=== PATIENT | male | born 1970 | race Hispanic/Latino ===

== ENCOUNTER 2018-05-02 11:41 | Emergency (ER) | payer SELFPAY ==
[~2018-05-02] VITALS: Ht 170.2 cm; Wt 81.6 kg
[2018-05-02 11:47] VITALS: BP 157/95
--- NOTE | 2018-05-02 12:37 | RADIOLOGY REPORT ---
EXAMINATION: XR FOOT, RIGHT CLINICAL INFORMATION: Right foot swelling and pain. Evaluate for fracture. COMPARISON: None TECHNIQUE: AP, lateral, and oblique views of the right foot. FINDINGS AND IMPRESSION: There is no fracture or malalignment. There are mild degenerative changes of the first MTP joint.
--- NOTE | 2018-05-02 13:14 | ED UPPER/LOWER EXTREMITY COMPL ---
History of Present Illness General Chief Complaint: Foot or Ankle Injury Stated Complaint: FOOT SWELLING, PAINFUL Source: patient Exam Limitations: no limitations Vital Signs & Intake/Output Vital Signs & Intake/Output Vital Signs Date Time Temp Pulse Resp B/P B/P Pulse O2 O2 Flow FiO2 Mean Ox Delivery Rate 05/02 1147 97.4 74 18 157/95 98 Room Air Allergies Coded Allergies: No Known Allergies (05/02/18) Triage Note: 47 YO MALE TO TRIAGE FOR EVAL OF R FOOT/CALF PAIN. HAS BEEN TRAVELING BACK AND FORTH FROM [place] IN HIS CAR. STARTED WITH SCIATICA PAIN ON THE R SIDE AND NOW HAS PAIN TO R FOOT AND R CALF. PT REPORTS SLIGHT SWELLING. UNABLE TO VISUALIZE IN TRIAGE. NO INJURY Triage Nurses Notes Reviewed? yes Onset: Gradual Duration: week(s): Timing: recent history Severity: moderate Pain/Injury Location: Right: Leg, Foot, Ankle. Method of Injury: unknown HPI: 47yo male with hx of DM presents to ED complaining of "sleeping" sensation to right calf and foot x 3 weeks. Patient is also concerned about the pain and swelling. Patient states that 3 weeks ago he began having pain radiating from buttocks down to foot and right side. He states this is when paresthesias also began. Patient attributed his symptoms to sciatica. He reports that over the past 2 weeks he has been traveling back and forth from [place] to [place]. Reports that he was worried about possible blood clot. There was no trauma or injury prior to onset of symptoms. Patient denies back pain, saddle anesthesia, incontinence. (Adrienne Leigh) Past History Travel History Traveled to [facility] past 21 day No Medical History Any Pertinent Medical History? see below for history Neurological: NONE EENT: NONE Cardiovascular: NONE Respiratory: NONE Gastrointestinal: NONE Hepatic: NONE Renal: NONE Musculoskeletal: NONE Psychiatric: NONE Endocrine: diabetes Blood Disorders: NONE Cancer(s): NONE BENEFITS REPRESENTATIVE/Reproductive: NONE Surgical History Surgical History: non-contributory Psychosocial History What is your primary language Uzbek Tobacco Use: Never used Family History Hx Contributory? No (Adrienne Leigh) Review of Systems Review of Systems Constitutional: Reports: no symptoms. EENTM: Reports: no symptoms. Respiratory: Reports: no symptoms. Cardiovascular: Reports: no symptoms. Gastrointestinal/Abdominal: Reports: no symptoms. Genitourinary: Reports: no symptoms. Musculoskeletal: Reports: see HPI. Skin: Reports: no symptoms. Neurological/Psychological: Reports: see HPI. Hematologic/Endocrine: Reports: no symptoms. Immunological: Reports: no symptoms. All Other Systems: Reviewed and Negative (Kristyn JERRY,Adrienne Landeros) Physical Exam Physical Exam General Appearance: well developed/nourished, no apparent distress, alert, awake Head: atraumatic, normal appearance Eyes: Bilateral: normal appearance. Ears, Nose, Throat: hearing grossly normal Neck: normal inspection, supple, full range of motion Cardiovascular/Respiratory: normal peripheral pulses, no respiratory distress Peripheral Pulses: 2+ dorsalis pedis (R) Back: normal inspection, normal range of motion, no vertebral tenderness Leg Right: buttucks tenderness, calf is nontender, no significant edema detected Hip Left: normal range of motion, normal inspection Hip Right: normal range of motion, normal inspection Knee Left: normal range of motion, normal inspection Knee Right: normal range of motion, normal inspection Foot Left: normal inspection, normal range of motion Foot Right: normal inspection, normal range of motion Neurologic/Tendon: normal sensation, normal motor functions, normal tendon functions Skin: intact, normal color, warm/dry (Kristyn JERRY,Adrienne Landeros) Progress Differential Diagnosis: arterial insufficiency, contusion, DVT, fracture, gout, sprain, tendon injury Plan of Care: Orders Procedure Date/time Status US-UNILATERAL VENOUS DOPPLER 05/02 1204 Active No evidence of DVT detected on ultrasound. Patient has sensation intact bilaterally although he does report paresthesias. There is no focal neurologic deficit on exam. He has intact distal pulses. Possible paresthesias related to sciatica, also possibility of early diabetic neuropathy. I recommended patient follow up with [facility] as well as a group exercise instructor. He was given a referral for both. I recommended Tylenol use for pain. Patient is currently not having pain, he may take Tylenol as needed. Patient ambulates without difficulty leaving the emergency department. He was educated on red flag symptoms. He agrees with the plan of care. Diagnostic Imaging: Viewed by Me: Radiology Read, Ultrasound. Discussed w/RAD: Radiology Read, Ultrasound. Radiology Impression: PATIENT: SHANIQUA NASSAR PRESENT AGE: 47 PATIENT ACCOUNT NO: [id number] : 72 LOCATION: [facility] ORDERING PHYSICIAN: Adrienne JERRY SERVICE DATE: 05/02/18 EXAM TYPE: US - US-UNILATERAL VENOUS DOPPLER EXAMINATION: US TRIPLEX LOWER EXTREMITY, RIGHT CLINICAL INFORMATION: Right leg swelling. Evaluate for deep vein thrombosis. COMPARISON: None TECHNIQUE: Color-flow triplex imaging with spectral analysis and compression Doppler were performed on the lower extremity. FINDINGS : Respiratory variation, normal compression and augmented flow are noted throughout the lower extremity. The visualized common femoral vein, superficial femoral vein, profunda femoral vein, popliteal vein and midcalf peroneal and posterior tibial venous segments show no evidence of deep venous thrombosis. There is no Chow's cyst. IMPRESSION: No evidence of deep venous thrombosis involving the lower extremity. DICTATED BY: Jaylen Nelson MD DATE/TIME DICTATED:05/02/181308 CORRECTIONS CASEWORKER:JEAN CARLOS DATE/TIME TRANSCRIBED:1308 CONFIDENTIAL, DO NOT COPY WITHOUT APPROPRIATE AUTHORIZATION. < Electronically signed in Other Vendor System> SIGNED BY: Jaylen Nelson MD 05/02/18 1314, PATIENT: SHANIQUA NASSAR PRESENT AGE: 47 PATIENT ACCOUNT NO: [id number] : 72 LOCATION: [facility] ORDERING PHYSICIAN: Adrienne JERRY SERVICE DATE: 05/02/18 EXAM TYPE: RAD - XRY-FOOT COMPLETE, R EXAMINATION: XR FOOT, RIGHT CLINICAL INFORMATION: Right foot swelling and pain. Evaluate for fracture. COMPARISON: None TECHNIQUE: AP, lateral, and oblique views of the right foot. FINDINGS AND IMPRESSION: There is no fracture or malalignment. There are mild degenerative changes of the first MTP joint. DICTATED BY: Jaylen Nelson MD DATE/TIME DICTATED:05/02/181230 CORRECTIONS CASEWORKER:JEAN CARLOS DATE/TIME TRANSCRIBED:1230 CONFIDENTIAL, DO NOT COPY WITHOUT APPROPRIATE AUTHORIZATION. < Electronically signed in Other Vendor System> SIGNED BY: Jaylen Nelson MD 05/02/181236 (Kristyn JERRY,Adrienne Landeros) Departure Departure Disposition: HOME OR SELF CARE Condition: Stable Clinical Impression Primary Impression: Paresthesias Secondary Impressions: Sciatica Qualifiers: Laterality: right Qualified Code: M54.31 - Sciatica, right side Referrals: Mohsen Camejo DPM Patient Has No Primary Care Dr (PCP/Family) Additional Instructions: You may take Tylenol 650 mg every 6 hours as prescribed as needed for pain. Follow-up with the foot doctor regarding your numbness sensation. You were also given a referral for a primary care physician which you can follow-up with. Return if you have worsening symptoms or concerns including increasing pain, back pain, numbness of groin, urinary incontinence Please note that there might be incidental findings in your evaluation that are unrelated to the current emergency department visit. Please notify your primary care doctor about this emergency department visit in order to obtain and review all of the testing performed so that these incidental findings can be monitored as needed. If you had an x-ray performed, please understand that some fractures may not be seen on the initial set of x-rays. If your symptoms persist you might need a repeat set of x-rays to check for such a fracture. If you had a laceration evaluated, please understand that foreign bodies such as glass or wood may not be visible to the naked eye or on plain x-rays. If the wound becomes red, swollen, increasingly more painful or if there is any drainage from the wound, please have it reevaluated by a physician for the possibility of a retained foreign body. If you're unable to follow up as outlined in the discharge instructions please return to the emergency department. Thank you for choosing the [facility] Emergency Department for your care. It was a pleasure to serve you today. Departure Forms: Customer Survey General Discharge Information (Kristyn JERRY,Adrienne Landeros) PA/DIESEL DINKEY ENGINEER Co-Sign Statement Statement: ED Attending supervision documentation- [] I saw and evaluated the patient. I have also reviewed all the pertinent lab results and diagnostic results. I agree with the findings and the plan of care as documented in the PA's/DIESEL DINKEY ENGINEER's documentation. [x] I have reviewed the ED Record and agree with the PA's/DIESEL DINKEY ENGINEER's documentation. [] Additions or exceptions (if any) to the PAs/DIESEL DINKEY ENGINEER's note and plan are summarized below: [] (Brea PERRY, Francisco Javier)
== END 2018-05-02 14:03 ==
LOC: ERH 11:41
DX: R20.2 Paresthesia of skin (principal); M54.31 Sciatica, right side; M79.671 Pain in right foot; E11.9 Type 2 diabetes mellitus without complications
CPT/HCPCS: 73630-RT